=== PATIENT | female | born 1965 | race Caucasian/White ===

== ENCOUNTER → 2018-04-11 | Outpatient (CLI) | payer BC ==
--- NOTE | 2018-04-11 09:41 | FL ---
EXAMINATION TYPE: FL sniff test without CXR DATE OF EXAM: 04/11/2018 COMPARISON: Chest x-ray from March 29, 2018 and older study October 14, 2015. 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 Dyspnea and shortness of breath increasing in sever ity over last 2 months. TECHNIQUE: Fluoroscopic assisted sniff test. A total of 23 seconds of fluoroscopic time was utilized during procedure. 30 images are saved to PACS. FINDINGS: There is redemonstration of chronic elevated left hemidiaphragm. Dynamic scanning shows sat isfactory and symmetric motion to both diaphragms. No paralysis is evident. IMPRESSION: As Above.
== END | disposition home or self-care (01) ==
LOC: RADFLMAIN 08:59
PROVIDERS: ATTEND Internal Medicine
DX: J98.6 Disorders of diaphragm (principal)
CPT/HCPCS: 76000

== ENCOUNTER → 2019-12-16 | Outpatient (CLI) | payer BC ==
[2019-12-16 11:25] VITALS: BMI 31.2
== END | disposition home or self-care (01) ==
LOC: DBWHC3 08:54
PROVIDERS: ATTEND Family Medicine
DX: R73.09 Other abnormal glucose (principal)
CPT/HCPCS: 97802